=== PATIENT | female | born 1945 | race Two or more races ===

== ENCOUNTER 2023-10-04 08:42 | Inpatient (IN) | payer MEDICARE, MEDICAID ==
[~2023-10-04] VITALS: Ht 139.7 cm; Wt 88.3 kg
[2023-10-04 10:12] LABS: Basophils # (auto) 0 10 ^3/uL (0-0.2); Basophils % (auto) 0.4 % (0.0-2.0); Eosinophils # (auto) 0.3 10 ^3/uL (0-0.8); Eosinophils % (auto) 4.5 % (0.0-7.0); Hematocrit 36.8 % (36.0-46.0); Hemoglobin 11.9 g/dL (12.2-16.2); Lymphocytes # (auto) 1.2 10 ^3/uL (0.4-5.4); Lymphocytes % (auto) 21.2 % (10.0-50.0); Mean Corpuscular Hemoglobin 28.4 pg (28.0-32.0); Mean Corpuscular Hgb Conc. 32.3 g/dL (32.0-36.0); Mean Corpuscular Volume 87.7 fL (80.0-100.0); Monocytes # (auto) 0.5 10 ^3/uL (0-1.3); Monocytes % (auto) 9.4 % (0.0-12.0); Neutrophils # (auto) 3.6 10 ^3/uL (1.6-8.6); Neutrophils % (auto) 64.5 % (37.0-80.0); Nucleated Red Blood Cells % 0.2 %; Red Cell Distribution Width 17.1 % (11.8-14.3); White Blood Cell 5.6 10^3/uL (4.4-10.8)
[2023-10-04 10:19] LABS: Alanine Aminotransferase 30 U/L (7-40); Albumin 3.1 g/dL (3.2-4.8); Alkaline Phosphatase 77 U/L (46-116); Anion Gap 7 (5-15); Aspartate Aminotransferase 76 U/L (13-40); Bilirubin, Total 0.6 mg/dL (0.2-1.0); Calcium 7.7 mg/dL (8.5-10.1); Carbon Dioxide 26 mmol/L (20-30); Chloride 109 mmol/L (98-107); Glucose 150 mg/dL (74-106); Potassium 3.3 mmol/L (3.5-5.1); Sodium 142 mmol/L (136-145)
[2023-10-04 10:20] LABS: BUN/Creatinine Ratio 4.6 (10.0-20.0); Blood Urea Nitrogen < 5 mg/dL (9-23); Total Protein 5.6 g/dL (5.7-8.2)
[2023-10-04] MEDS ORDERED: ONDANSETRON HCL 4 MG/2 ML VIAL IV ONE (12:00)
[2023-10-04] MEDS ORDERED: MORPHINE SULFATE INJ 2 MG/ml SYRG IV ONE (12:00)
[2023-10-04] MEDS ORDERED: MORPHINE SULFATE INJ 2 MG/ml SYRG IV PRN (14:00)
[2023-10-04] MEDS ORDERED: NITROGLYCERIN 0.4 MG SL TAB SL PRN (14:00)
[2023-10-04] MEDS ORDERED: POTASSIUM CHL 20MEQ/100ML 100 ML IV ONE (14:15)
[2023-10-04] MEDS ORDERED: DEXTROSE (50%) 50ML SYRG IV PRN (14:15)
[2023-10-04] MEDS ORDERED: CALCIUM GLUC 1,000mg/50ml-NS 50 ML IV ONE (14:45)
[2023-10-04 14:49] LABS: Triglycerides 194 mg/dL (< 150)
[2023-10-04 14:50] LABS: LDL Cholesterol 27 mg/dL (< 100)
[2023-10-04 14:51] LABS: Cholesterol 64 mg/dL (< 200); HDL Cholesterol 9 mg/dL (40-59)
[2023-10-04 19:44] VITALS: PULSE 110; RESP 17; O2SAT 95
[2023-10-04] MEDS: ONDANSETRON HCL 4 MG/2 ML VIAL IV PRN (20:09)
[2023-10-04] MEDS: MORPHINE SULFATE INJ 2 MG/ml SYRG IV PRN (20:09)
[2023-10-04] MEDS: InsuLIN REG 1unit/0.01ml Soln (100units/ml) SC SCH ×2 (20:10→22:00)
[2023-10-04] MEDS: ACCU-CHEK COMFORT CURVE STRIP VI SCH ×2 (20:20→22:00)
[2023-10-04] MEDS: CARVEDILOL 12.5 MG TAB PO SCH ×2 (21:36→22:00)
[2023-10-04] MEDS: ASPirin 81 mg TAB PO SCH (21:36)
[2023-10-04] MEDS: VANCOMYCIN HCL 125MG/5ML ORAL SOL PO SCH ×2 (22:00→22:01)
[2023-10-04] MEDS: ATORVASTATIN 20 MG TAB PO SCH (22:36)
[2023-10-04] MEDS: FUROSEMIDE 20 MG/2 ML VIAL IV SCH (22:37)
[2023-10-05] VITALS (9 sets, daily range): BP systolic 92–140; BP diastolic 52–72; PULSE 76–86; RESP 18–22; TEMP 98–99.2; O2SAT 90–94
[2023-10-05] MEDS ORDERED: METR-344 PO (00:57)
[2023-10-05] MEDS ORDERED: MAGN400T40 PO (00:57)
[2023-10-05] MEDS ORDERED: ONDA-155 PO (00:57)
[2023-10-05] MEDS ORDERED: COEN400C8 OR (00:57)
[2023-10-05] MEDS ORDERED: ATOR-47 PO (00:57)
[2023-10-05] MEDS ORDERED: FURO20TA3 PO (00:57)
[2023-10-05] MEDS ORDERED: METF-370 PO (00:57)
[2023-10-05] MEDS ORDERED: GABA-1250 PO (00:57)
[2023-10-05] MEDS ORDERED: ACE650RS PR (00:57)
[2023-10-05] MEDS ORDERED: AMLO1TAB22 PO (00:57)
[2023-10-05] MEDS ORDERED: CIPR-173 PO (00:57)
[2023-10-05] MEDS ORDERED: MECL1TAB32 PO (00:57)
[2023-10-05] MEDS ORDERED: CHOL100046 PO (00:57)
[2023-10-05] MEDS: metroNIDAZOLE 500MG/100ML 100 ML IV SCH ×3 (01:21→21:50)
[2023-10-05] MEDS: ONDANSETRON HCL 4 MG/2 ML VIAL IV PRN ×2 (04:42→23:19)
[2023-10-05] MEDS: MORPHINE SULFATE INJ 2 MG/ml SYRG IV PRN ×3 (04:43→20:00)
[2023-10-05 06:24] LABS: Alanine Aminotransferase 27 U/L (7-40); Albumin 3.1 g/dL (3.2-4.8); Alkaline Phosphatase 50 U/L (46-116); Anion Gap 7 (5-15); Aspartate Aminotransferase 69 U/L (13-40); Bilirubin, Total 0.9 mg/dL (0.2-1.0); Calcium 7.9 mg/dL (8.7-10.4); Carbon Dioxide 24 mmol/L (20-30); Chloride 108 mmol/L (98-107); Glucose 146 mg/dL (74-106); Potassium 3.7 mmol/L (3.5-5.1); Sodium 139 mmol/L (136-145); Total Protein 5.5 g/dL (5.7-8.2)
[2023-10-05 06:26] LABS: BUN/Creatinine Ratio 4.9 (10.0-20.0); Blood Urea Nitrogen < 5 mg/dL (9-23)
[2023-10-05] MEDS: VANCOMYCIN HCL 125MG/5ML ORAL SOL PO SCH ×4 (06:45→21:50)
[2023-10-05] MEDS: LEVOTHYROXINE SODIUM 50 MCG TAB PO SCH (06:45)
[2023-10-05] MEDS: ACCU-CHEK COMFORT CURVE STRIP VI SCH ×4 (06:45→21:49)
[2023-10-05] MEDS: InsuLIN REG 1unit/0.01ml Soln (100units/ml) SC SCH ×4 (06:54→22:00)
[2023-10-05 06:58] LABS: Basophils # (auto) 0 10 ^3/uL (0-0.2); Basophils % (auto) 0.5 % (0.0-2.0); Eosinophils # (auto) 0.3 10 ^3/uL (0-0.8); Eosinophils % (auto) 4.3 % (0.0-7.0); Hematocrit 34.8 % (36.0-46.0); Hemoglobin 11.3 g/dL (12.2-16.2); Lymphocytes # (auto) 1.2 10 ^3/uL (0.4-5.4); Lymphocytes % (auto) 18.3 % (10.0-50.0); Mean Corpuscular Hemoglobin 28.7 pg (28.0-32.0); Mean Corpuscular Hgb Conc. 32.6 g/dL (32.0-36.0); Mean Corpuscular Volume 87.9 fL (80.0-100.0); Monocytes # (auto) 0.8 10 ^3/uL (0-1.3); Monocytes % (auto) 12.2 % (0.0-12.0); Neutrophils # (auto) 4.2 10 ^3/uL (1.6-8.6); Neutrophils % (auto) 64.7 % (37.0-80.0); Nucleated Red Blood Cells % 0.3 %; Red Blood Cells 3.95 10^6/uL (4.0-5.20); Red Cell Distribution Width 16.8 % (11.8-14.3); White Blood Cell 6.5 10^3/uL (4.4-10.8)
[2023-10-05 08:08] LABS: % Iron Saturation 27.6 % (15-50)
[2023-10-05] MEDS: ASPirin 81 mg TAB PO SCH (11:22)
[2023-10-05] MEDS: FUROSEMIDE 20 MG/2 ML VIAL IV SCH (11:23)
[2023-10-05] MEDS: CARVEDILOL 12.5 MG TAB PO SCH ×2 (11:24→21:49)
[2023-10-05 16:11] LABS: Urine Bacteria NONE SEEN /hpf (None Seen); Urine Blood TRACE /uL (Negative); Urine Clarity Clear (Clear); Urine Color Yellow (Yellow); Urine Hyaline Cast MANY /lpf (0 - 2); Urine Mucus FEW (None Seen); Urine Protein, UAD Negative (Negative); Urine Specific Gravity 1.013 (1.001-1.035); Urine Urobilinogen Normal (Negative); Urine WBC 1 /hpf (0 - 5); Urine pH 5.5 (5.0-8.0)
[2023-10-05 16:12] LABS: Creatinine, Urine 131.61 mg/dL (30.0-125.0)
[2023-10-05 16:26] LABS: Protein, Urine 6.6 mg/dL (0.0-11.9); Urine Protein/Creatinine Ratio 0.05
[2023-10-05] MEDS: LIDOCAINE 5% TOPICAL PATCH TOP SCH (17:37)
[2023-10-05] MEDS: ATORVASTATIN 20 MG TAB PO SCH (21:49)
[2023-10-05] MEDS ORDERED: SOD CHL 0.45% 1,000 ML IV SCH (22:45)
[2023-10-05] MEDS ORDERED: SODIUM CHLORIDE 0.9% 1,000 ML IV ONE (22:45)
[2023-10-06 05:30] VITALS: BP 132/72; PULSE 73; TEMP 97.9; O2SAT 95
[2023-10-06 05:32] LABS: Anion Gap 9 (5-15); Carbon Dioxide 20 mmol/L (20-30); Chloride 110 mmol/L (98-107); Potassium 3.3 mmol/L (3.5-5.1); Sodium 139 mmol/L (136-145)
[2023-10-06 05:34] LABS: Calcium 6.6 mg/dL (8.5-10.1)
[2023-10-06 05:39] LABS: Glucose 106 mg/dL (74-106)
[2023-10-06 05:41] LABS: BUN/Creatinine Ratio 5.6 (10.0-20.0); Blood Urea Nitrogen < 5 mg/dL (9-23)
[2023-10-06 05:52] LABS: Basophils # (auto) 0 10 ^3/uL (0-0.2); Basophils % (auto) 0.6 % (0.0-2.0); Eosinophils # (auto) 0.6 10 ^3/uL (0-0.8); Eosinophils % (auto) 9.1 % (0.0-7.0); Hematocrit 34.3 % (36.0-46.0); Hemoglobin 10.9 g/dL (12.2-16.2); Lymphocytes # (auto) 1.5 10 ^3/uL (0.4-5.4); Lymphocytes % (auto) 24.3 % (10.0-50.0); Mean Corpuscular Hemoglobin 28.1 pg (28.0-32.0); Mean Corpuscular Hgb Conc. 31.7 g/dL (32.0-36.0); Mean Corpuscular Volume 88.4 fL (80.0-100.0); Monocytes # (auto) 0.9 10 ^3/uL (0-1.3); Monocytes % (auto) 13.9 % (0.0-12.0); Neutrophils # (auto) 3.2 10 ^3/uL (1.6-8.6); Neutrophils % (auto) 52.1 % (37.0-80.0); Nucleated Red Blood Cells % 0.2 %; Red Blood Cells 3.87 10^6/uL (4.0-5.20); Red Cell Distribution Width 17.2 % (11.8-14.3); White Blood Cell 6.2 10^3/uL (4.4-10.8)
[2023-10-06] MEDS: LEVOTHYROXINE SODIUM 50 MCG TAB PO SCH (06:31)
[2023-10-06] MEDS: ACCU-CHEK COMFORT CURVE STRIP VI SCH ×4 (06:31→22:57)
[2023-10-06] MEDS: VANCOMYCIN HCL 125MG/5ML ORAL SOL PO SCH ×4 (06:33→23:05)
[2023-10-06] MEDS: InsuLIN REG 1unit/0.01ml Soln (100units/ml) SC SCH ×4 (06:36→22:00)
[2023-10-06] MEDS ORDERED: POTASSIUM CHL 20 Meq TABLET PO ONE (07:30)
[2023-10-06] MEDS ORDERED: CALCIUM ACETATE 667 MG CAP PO ONE (07:30)
[2023-10-06 09:00] VITALS: BP 140/59; PULSE 83; RESP 18; TEMP 97.4; O2SAT 100
[2023-10-06] MEDS: ONDANSETRON HCL 4 MG/2 ML VIAL IV PRN ×2 (09:11→18:02)
[2023-10-06] MEDS: MORPHINE SULFATE INJ 2 MG/ml SYRG IV PRN ×3 (09:13→23:32)
[2023-10-06] MEDS: FUROSEMIDE 20 MG/2 ML VIAL IV SCH (10:17)
[2023-10-06] MEDS: ASPirin 81 mg TAB PO SCH (10:17)
[2023-10-06] MEDS: cefTRIAXone 1GM/50ML D5W 50 ML IV SCH (10:17)
[2023-10-06] MEDS: LIDOCAINE 5% TOPICAL PATCH TOP SCH (10:18)
[2023-10-06] MEDS: CARVEDILOL 12.5 MG TAB PO SCH ×2 (10:18→22:56)
[2023-10-06] MEDS: metroNIDAZOLE 500MG/100ML 100 ML IV SCH ×2 (11:21→23:06)
[2023-10-06 13:00] VITALS: BP 95/48; PULSE 76; RESP 20; TEMP 98; O2SAT 94
[2023-10-06] MEDS ORDERED: GABA-1250 PO (13:38)
[2023-10-06] MEDS ORDERED: ACET500T58 PO (13:38)
[2023-10-06] MEDS ORDERED: METO25TA5 PO (13:41)
[2023-10-06] MEDS ORDERED: LOSA100T58 PO (13:43)
[2023-10-06] MEDS ORDERED: CLON0.1T PO (13:43)
[2023-10-06] MEDS ORDERED: ALEN70TA74 PO (13:43)
[2023-10-06 17:00] VITALS: BP 107/66; PULSE 82; RESP 20; TEMP 98.5; O2SAT 92
[2023-10-06 20:00] VITALS: BP 110/60; PULSE 78; RESP 18; TEMP 99.7
[2023-10-06 22:00] VITALS: BP 124/70; PULSE 82; RESP 16; TEMP 99.7; O2SAT 95
[2023-10-06] MEDS: ATORVASTATIN 20 MG TAB PO SCH (22:56)
[2023-10-07] VITALS (7 sets, daily range): BP systolic 110–146; BP diastolic 51–84; PULSE 73–78; RESP 14–18; TEMP 97.9–99.7; O2SAT 95–97
[2023-10-07] MEDS: LEVOTHYROXINE SODIUM 50 MCG TAB PO SCH (06:05)
[2023-10-07] MEDS: VANCOMYCIN HCL 125MG/5ML ORAL SOL PO SCH ×4 (06:06→23:25)
[2023-10-07] MEDS: ACCU-CHEK COMFORT CURVE STRIP VI SCH ×4 (06:09→23:25)
[2023-10-07] MEDS: InsuLIN REG 1unit/0.01ml Soln (100units/ml) SC SCH ×4 (06:18→22:00)
[2023-10-07 06:31] LABS: Basophils # (auto) 0 10 ^3/uL (0-0.2); Basophils % (auto) 0.3 % (0.0-2.0); Eosinophils # (auto) 0.4 10 ^3/uL (0-0.8); Eosinophils % (auto) 6.9 % (0.0-7.0); Hemoglobin 11.1 g/dL (12.2-16.2); Lymphocytes # (auto) 1.6 10 ^3/uL (0.4-5.4); Mean Corpuscular Hemoglobin 28.4 pg (28.0-32.0); Mean Corpuscular Hgb Conc. 32.7 g/dL (32.0-36.0); Mean Corpuscular Volume 86.7 fL (80.0-100.0); Monocytes # (auto) 0.8 10 ^3/uL (0-1.3); Monocytes % (auto) 13.7 % (0.0-12.0); Neutrophils # (auto) 2.9 10 ^3/uL (1.6-8.6); Neutrophils % (auto) 51.1 % (37.0-80.0); Nucleated Red Blood Cells % 0.2 %; Red Blood Cells 3.93 10^6/uL (4.0-5.20); Red Cell Distribution Width 16.6 % (11.8-14.3); White Blood Cell 5.7 10^3/uL (4.4-10.8)
[2023-10-07 06:43] LABS: Alanine Aminotransferase 23 U/L (7-40); Albumin 2.9 g/dL (3.2-4.8); Alkaline Phosphatase 53 U/L (46-116); Anion Gap 9 (5-15); Aspartate Aminotransferase 49 U/L (13-40); BUN/Creatinine Ratio 5.1 (10.0-20.0); Bilirubin, Total 0.6 mg/dL (0.2-1.0); Blood Urea Nitrogen 5 mg/dL (9-23); Calcium 7.9 mg/dL (8.5-10.1); Carbon Dioxide 23 mmol/L (20-30); Chloride 109 mmol/L (98-107); Glucose 105 mg/dL (74-106); Potassium 3.2 mmol/L (3.5-5.1); Sodium 141 mmol/L (136-145); Total Protein 5.4 g/dL (5.7-8.2)
[2023-10-07] MEDS ORDERED: POTASSIUM EFFERVESENT TAB 25 MEQ PO ONE (10:00)
[2023-10-07] MEDS: ASPirin 81 mg TAB PO SCH (10:59)
[2023-10-07] MEDS: CARVEDILOL 12.5 MG TAB PO SCH ×2 (10:59→23:18)
[2023-10-07] MEDS: metroNIDAZOLE 500MG/100ML 100 ML IV SCH ×2 (11:00→23:17)
[2023-10-07] MEDS: cefTRIAXone 1GM/50ML D5W 50 ML IV SCH (11:00)
[2023-10-07] MEDS: FUROSEMIDE 20 MG/2 ML VIAL IV SCH (11:00)
[2023-10-07] MEDS: MORPHINE SULFATE INJ 2 MG/ml SYRG IV PRN ×2 (11:30→20:21)
[2023-10-07] MEDS: LIDOCAINE 5% TOPICAL PATCH TOP SCH (11:51)
[2023-10-07] MEDS: ONDANSETRON HCL 4 MG/2 ML VIAL IV PRN ×2 (12:19→20:17)
[2023-10-07] MEDS: MAGNESIUM SULFATE 1GM/100ML 100 ML IV SCH ×4 (13:00→23:17)
[2023-10-07] MEDS: ATORVASTATIN 20 MG TAB PO SCH (23:17)
[2023-10-08 05:00] VITALS: BP 119/59; PULSE 72; RESP 18; TEMP 98.8; O2SAT 97
[2023-10-08] MEDS: metroNIDAZOLE 500MG/100ML 100 ML IV SCH (05:34)
[2023-10-08] MEDS: ONDANSETRON HCL 4 MG/2 ML VIAL IV PRN ×2 (05:35→12:16)
[2023-10-08] MEDS: MORPHINE SULFATE INJ 2 MG/ml SYRG IV PRN ×2 (05:45→12:18)
[2023-10-08] MEDS: VANCOMYCIN HCL 125MG/5ML ORAL SOL PO SCH ×2 (06:22→11:33)
[2023-10-08] MEDS: ACCU-CHEK COMFORT CURVE STRIP VI SCH ×2 (06:23→11:31)
[2023-10-08] MEDS: InsuLIN REG 1unit/0.01ml Soln (100units/ml) SC SCH ×2 (06:24→11:30)
[2023-10-08] MEDS: LEVOTHYROXINE SODIUM 50 MCG TAB PO SCH (06:42)
[2023-10-08 08:00] VITALS: RESP 18
[2023-10-08 08:15] VITALS: BP 139/73; PULSE 86; RESP 21; TEMP 98.8; O2SAT 96
[2023-10-08 08:20] LABS: Basophils # (auto) 0 10 ^3/uL (0-0.2); Basophils % (auto) 0.3 % (0.0-2.0); Eosinophils # (auto) 0.4 10 ^3/uL (0-0.8); Eosinophils % (auto) 7.2 % (0.0-7.0); Hematocrit 35.6 % (36.0-46.0); Hemoglobin 11.6 g/dL (12.2-16.2); Lymphocytes # (auto) 1.4 10 ^3/uL (0.4-5.4); Lymphocytes % (auto) 26.3 % (10.0-50.0); Mean Corpuscular Hemoglobin 28.3 pg (28.0-32.0); Mean Corpuscular Hgb Conc. 32.7 g/dL (32.0-36.0); Mean Corpuscular Volume 86.7 fL (80.0-100.0); Monocytes # (auto) 0.7 10 ^3/uL (0-1.3); Monocytes % (auto) 13.2 % (0.0-12.0); Neutrophils # (auto) 2.8 10 ^3/uL (1.6-8.6); Nucleated Red Blood Cells % 0.1 %; Red Blood Cells 4.11 10^6/uL (4.0-5.20); Red Cell Distribution Width 16.6 % (11.8-14.3); White Blood Cell 5.3 10^3/uL (4.4-10.8)
[2023-10-08 08:39] LABS: Alanine Aminotransferase 18 U/L (7-40); Alkaline Phosphatase 53 U/L (46-116); Anion Gap 7 (5-15); Aspartate Aminotransferase 42 U/L (13-40); Calcium 7.7 mg/dL (8.7-10.4); Carbon Dioxide 26 mmol/L (20-30); Chloride 106 mmol/L (98-107); Glucose 121 mg/dL (74-106); Magnesium 1.9 mg/dL (1.6-2.6); Potassium 3.2 mmol/L (3.5-5.1); Sodium 139 mmol/L (136-145)
[2023-10-08 08:40] LABS: Bilirubin, Total 0.6 mg/dL (0.2-1.0); Total Protein 5.5 g/dL (5.7-8.2)
[2023-10-08 08:44] LABS: BUN/Creatinine Ratio 5.6 (10.0-20.0); Blood Urea Nitrogen < 5 mg/dL (9-23)
[2023-10-08] MEDS: cefTRIAXone 1GM/50ML D5W 50 ML IV SCH (10:05)
[2023-10-08] MEDS: ASPirin 81 mg TAB PO SCH (10:06)
[2023-10-08] MEDS: FUROSEMIDE 20 MG/2 ML VIAL IV SCH (10:07)
[2023-10-08] MEDS: LIDOCAINE 5% TOPICAL PATCH TOP SCH (10:07)
[2023-10-08] MEDS: CARVEDILOL 12.5 MG TAB PO SCH (10:07)
[2023-10-08 12:10] VITALS: BP_SYST 111; BP_SYST 146; BP_DIAS 74; BP_DIAS 75; PULSE 70; PULSE 79; RESP 19; RESP 21; TEMP 97.9; TEMP 98.2; O2SAT 94; O2SAT 98
[2023-10-08 12:58] VITALS: BP 139/73; PULSE 86; TEMP 36.8
[2023-10-08] MEDS ORDERED: POTASSIUM CHL 20 Meq TABLET PO ONE (13:00)
[2023-10-08 16:15] VITALS: BP 114/61; PULSE 76; RESP 19; TEMP 98.6; O2SAT 98
== END 2023-10-08 15:40 | DRG 640 ==
LOC: EDBD 08:42 → ER 08:42 → TELE 14:02 → TELE-CENTR 14:02 → CENTRAL 10-05 17:32
PROVIDERS: ADMIT Internal Medicine; ATTEND Internal Medicine
DX: E86.0 Dehydration (principal); N17.0 Acute kidney failure with tubular necrosis; N39.0 Urinary tract infection, site not specified; E44.0 Moderate protein-calorie malnutrition; Z68.42 Body mass index [BMI] 45.0-49.9, adult; I13.0 Hypertensive heart and chronic kidney disease with heart failure and stage 1 through stage 4 chronic kidney disease, or unspecified chronic kidney disease; I50.32 Chronic diastolic (congestive) heart failure; I95.1 Orthostatic hypotension; H81.10 Benign paroxysmal vertigo, unspecified ear; E03.9 Hypothyroidism, unspecified; E83.51 Hypocalcemia; E87.6 Hypokalemia; R74.01 Elevation of levels of liver transaminase levels; M54.50 Low back pain, unspecified; N18.9 Chronic kidney disease, unspecified; E11.22 Type 2 diabetes mellitus with diabetic chronic kidney disease; D63.8 Anemia in other chronic diseases classified elsewhere
CPT/HCPCS: 36415; 70450; 71045; 72131; 72148; 72192; 74176; 80048; 80053; 80061; 81001; 82306; 82533; 82570; 82607; 82962; 83036; 83540; 83550; 83735; 83880; 84156; 84300; 84436; 84443; 85025; 87081; 87086; 93306; 93886; 96374; 96375; 97110; 97163; 97530; G0378; J0696; J1815; J2405; J3480; J3490